=== PATIENT | male | born 1995 | race African-American/Black ===

== ENCOUNTER 2017-11-10 15:48 | Emergency (ER) | payer OTHER ==
[2017-11-10 16:19] VITALS: BP 107/76; PULSE 87; RESP 18; TEMP 98.3
[2017-11-10] MEDS ORDERED: IBUPROFEN 800 MG TAB PO STA (16:37)
--- NOTE | 2017-11-10 16:37 | ED ---
Back Pain HPI - General Chief Complaint: Back Pain/Injury Stated Complaint: back pain Time Seen by Provider: 11/10/17 16:23 Source: patient, RN notes reviewed Limitations: no limitations - History of Present Illness Initial Comments: This a 22-year-old male who denies past medical history who presents today for chief complaint of right-sided mid thoracic back pain. Patient states that yesterday he did not know the exact onset, but he began noticing pain in the right thoracic back that increased with rotation to the left. He states he probably slept on it wrong. He denies any fever, chills, night sweats, chest pain, shorts of breath, cough, hemoptysis, IV drug use or recent weight loss, flank pain, difficulty urinating, trauma to the chest or back, recent fall. Patient states that he figured that the pain would interfere with his work suicide presents emergency department today. Remainder ROS negative. VS within normal limits. - Related Data Previous Rx's Medication Instructions Recorded Ibuprofen [Motrin] 800 mg PO Q8H PRN 5 Days #15 tab 11/10/17 Allergies Allergy/AdvReac Type Severity Reaction Status Date / Time No Known Allergies Allergy Verified 11/10/17 16:19 Review of Systems ROS Statement: Those systems with pertinent positive or pertinent negative responses have been documented in the HPI. ROS Other: All systems not noted in ROS Statement are negative. Constitutional: Denies: fever, chills Eyes: Denies: vision change ENT: Denies: ear pain, throat pain Respiratory: Denies: cough, dyspnea, wheezes, hemoptysis, stridor Cardiovascular: Denies: chest pain, palpitations, orthopnea, edema, syncope Gastrointestinal: Denies: abdominal pain, nausea, vomiting Genitourinary: Denies: urgency, dysuria, frequency, hematuria Musculoskeletal: Reports: back pain, myalgia (rigth side of back). Denies: joint swelling, arthralgia Skin: Denies: rash Past Medical History Past Medical History: No Reported History History of Any Multi-Drug Resistant Organisms: None Reported Past Surgical History: No Surgical Hx Reported Past Psychological History: No Psychological Hx Reported Smoking Status: Current every day smoker Past Alcohol Use History: None Reported Past Drug Use History: None Reported General Exam - General Exam Comments Initial Comments: General: The patient is awake and alert, in no distress, and does not appear acutely ill. Eye: Pupils are equal, round and reactive to light, extra-ocular movements are intact. No nystagmus. There is normal conjunctiva bilaterally. No signs of icterus. Ears, nose, mouth and throat: There are moist mucous membranes and no oral lesions. Neck: The neck is supple, there is no tenderness or JVD. Cardiovascular: There is a regular rate and rhythm. No murmur, rub or gallop is appreciated. Respiratory: Lungs are clear to auscultation, respirations are non-labored, breath sounds are equal. No wheezes, stridor, rales, or rhonchi. Breath sounds appreciated in all lung [place]. Musculoskeletal: No overlying swelling, ecchymosis or rashes of the thoracic spine. Full ROM with forced flexion, hyperextension, lateral flexion and rotation at the lumbar spine and thoracic, patient admits to tenderness to left rotation. Tenderness to patient over the right sided thoracic spine. No midline tenderness to palpation of the spine from thoracic to lumbar. No CVA tenderness. Strength 5/5 of the upper extremities and lower extremities equally bilaterally. Sensation intact upper extremities and lower extremities equally bilaterally. DP and radial pulses equal bilaterally 2+. Neurological: A&O x 3. CN II-XII intact, There are no obvious motor or sensory deficits. Coordination appears grossly intact. Speech is normal. Skin: Skin is warm and dry and no rashes or lesions are noted. Psychiatric: Cooperative, appropriate mood & affect, normal judgment. Limitations: no limitations Course Vital Signs 11/10/17 16:16 Temperature 98.3 F Pulse Rate 87 Respiratory 18 Rate Blood Pressure 107/76 O2 Sat by Pulse 99 Oximetry Medical Decision Making - Medical Decision Making Pt appear very comfortable, leaning back in chair. Given pt hx and physical examination findings I feel pt has a thoracic strain. Hx and physical examination findings no consistent with a cardiopulmonary cause of thoracic pain. Neurovascular exam WNL. Pt was requesting work note, it was given to pt. Imaging was discussed with pt and was deferred at this time. Pt was instructed to rest, use ice/heat alternating and NSAIDs for back strain. Pt agreed with plan, pt denied questions. Pt discharged in stable condition after case discussed with Dr. Coleman who agrees with impression and plan. Disposition Clinical Impression: Strain of mid-back Disposition: HOME SELF-CARE Condition: Good Instructions: Thoracic Back Strain (ED) Additional Instructions: Please use medication as discussed. Please follow-up with family doctor in the next 2 days of symptoms have not improved. Please return to emergency room if the symptoms increase or worsen or for any other concerns, as discussed. Prescriptions: Ibuprofen [Motrin] 800 mg PO Q8H PRN 5 Days #15 tab PRN Reason: Pain Is patient prescribed a controlled substance at d/c from ED?: No Referrals: Michael Riggins MD [Primary Care Provider] - 1-2 days Time of Disposition: 16:36
== END 2017-11-10 17:08 | disposition home or self-care (01) ==
LOC: EC 15:48
DX: S29.012A Strain of muscle and tendon of back wall of thorax, initial encounter (principal); F17.200 Nicotine dependence, unspecified, uncomplicated; X50.9XXA Other and unspecified overexertion or strenuous movements or postures, initial encounter
CPT/HCPCS: 99283

== ENCOUNTER 2018-01-14 20:52 | Emergency (ER) | payer OTHER ==
[2018-01-14 20:59] VITALS: TEMP 97.6
--- NOTE | 2018-01-14 21:16 | ED ---
Abdominal Pain HPI - General Chief Complaint: Abdominal Pain Stated Complaint: Abd Pain Time Seen by Provider: 01/14/18 21:13 Source: patient Mode of arrival: ambulatory Limitations: no limitations - History of Present Illness Initial Comments: Danny is an obese 22-year-old male who presents the ED today for evaluation of 3 days of umbilical pain. Patient reports that he has tenderness around his umbilicus. He thought he felt a lump there but isn't certain. He states that he asked his mom to fill his bellybutton and she stated she could not feel anything. Patient describes the pain as a sharp stabbing and worse with palpation and certain movements. There is no relieving factors to the pain. Pain is not associated with any fevers, chills, nausea, vomiting, change in bowel or bladder habits. Patient does not know if he has a previous history of hernia in this area. Patient stop does require him to lift heavy objects frequently. MD Complaint: abdominal pain - Related Data Home Medications Medication Instructions Recorded Confirmed No Known Home Medications 01/14/18 01/14/18 Allergies Allergy/AdvReac Type Severity Reaction Status Date / Time No Known Allergies Allergy Verified 01/14/18 21:41 Review of Systems ROS Statement: Those systems with pertinent positive or pertinent negative responses have been documented in the HPI. ROS Other: All systems not noted in ROS Statement are negative. Past Medical History Past Medical History: No Reported History History of Any Multi-Drug Resistant Organisms: None Reported Past Surgical History: No Surgical Hx Reported Past Psychological History: No Psychological Hx Reported Smoking Status: Former smoker Past Alcohol Use History: None Reported Past Drug Use History: None Reported General Exam - General Exam Comments Initial Comments: Physical Exam GENERAL: Patient is well-developed and well-nourished. Patient is nontoxic and well- hydrated and is in no distress. HENT: Normocephalic, Atraumatic. EYES: PERRL, EOMI PULMONARY: Unlabored respirations. No audible rales rhonchi or wheezing was noted. CARDIOVASCULAR: There is a regular rate and rhythm without any murmurs gallops or rubs. ABDOMEN: Soft and nontender with normal bowel sounds. Firm and nonreducible lump palpable at the umbilicus, approximately 1-2 cm in diameter. This is suspicious for fat-containing hernia. No overlying erythema or skin changes SKIN: Skin is clear with no lesions or rashes and otherwise unremarkable. : Deferred NEUROLOGIC: Patient is alert and oriented x3. Moving all extremities spontaneously MUSCULOSKELETAL: Normal extremities with adequate strength and full range of motion. No lower extremity swelling or edema. No calf tenderness. PSYCHIATRIC: Normal psychiatric evaluation. Limitations: no limitations Limitations: no limitations Course Vital Signs 01/14/18 01/14/18 01/14/18 20:58 21:19 21:30 Temperature 97.6 F Pulse Rate 78 60 Respiratory 18 16 Rate Blood Pressure 112/75 136/78 O2 Sat by Pulse 99 99 98 Oximetry 01/14/18 01/14/18 01/14/18 22:00 22:10 22:20 Temperature Pulse Rate 62 Respiratory 16 Rate Blood Pressure 130/99 129/77 129/77 O2 Sat by Pulse 97 98 97 Oximetry 01/14/18 01/14/18 01/14/18 22:30 23:00 23:20 Temperature Pulse Rate 60 62 63 Respiratory 16 16 16 Rate Blood Pressure 129/77 94/68 113/76 O2 Sat by Pulse 98 97 99 Oximetry 01/14/18 23:30 Temperature Pulse Rate Respiratory Rate Blood Pressure 113/76 O2 Sat by Pulse 100 Oximetry Medical Decision Making - Medical Decision Making Patient was seen and evaluated, history is obtained from the patient, physical exam is concerning for an incarcerated umbilical hernia. I have a high suspicion this contains only fat as the patient is not having any associated GI disturbances and pain is minimal. Computed tomography scan was ordered CT scan with small non incarcerated hernia Patient was re-examined, sleeping comfortably, results discussed with patient and mother. Plan for discharge with outpatient follow-up with general surgeon to discuss elective repair of this hernia. Return parameters were discussed. A work note was provided to excuse the patient from the rest the week of work. All questions pertaining care were answered best my ability patient was discharged home in stable condition. Disposition Clinical Impression: Umbilical hernia Disposition: HOME SELF-CARE Condition: Good Instructions: Umbilical Hernia (ED) Is patient prescribed a controlled substance at d/c from ED?: No Referrals: None,Stated [REFERRING] - 1-2 days Cesilia Garnett MD [STAFF PHYSICIAN] - 1-2 days
[2018-01-14] MEDS ORDERED: KETOROLAC 30 MG/ML 1 ML VIAL IVP STA (21:59)
[2018-01-14 22:24] VITALS: RESP 16
--- NOTE | 2018-01-14 22:36 | CT ---
EXAMINATION TYPE: CT abdomen pelvis w con DATE OF EXAM: 01/14/2018 COMPARISON: None HISTORY: Pain, umbilical hernia. CT DLP: 1761.4 mGycm Automated exposure control for dose reduction was used. TECHNIQUE: Helical acquisition of images was performed from the lung bases through the pelvis. CONTRAST: Performed without Oral Contrast and with IV Contrast, patient injected with 100 mL of Isovue 300. FINDINGS: Lung bases are clear of infiltrate. There is no pleural effusion. There is no pericardial effusion. There are small hiatal hernia. Liver shows no focal defect. There is no evidence of pancreatic mass. Gallbladder appears normal. Spleen appears normal. There is no adrenal mass. Kidneys show satisfactory contrast opacification. There is no hydronephrosi s. There is no retroperitoneal adenopathy. I see no intestinal wall thickening. There are no dilated loops. Appendix appears normal. There is no mesenteric edema. There is small umbilical hernia that co ntains fat. There is a small loop of bowel that projects into the hernia 5 mm. Bladder distends nadir hly. There is no inguinal hernia. There is no free fluid in the pelvis. Lumbar spine is intact. I see no bony destructive process. IMPRESSION: SMALL UMBILICAL HERNIA CONTAINS A LOOP OF SMALL BOWEL WITHOUT INCARCERATION. NORMAL APPENDIX. NO EVID ENCE OF A BOWEL OBSTRUCTION.
[2018-01-14 23:36] VITALS: BP 113/76; PULSE 63
== END 2018-01-14 23:39 | disposition home or self-care (01) ==
LOC: EC 20:52
DX: K42.9 Umbilical hernia without obstruction or gangrene (principal); Z87.891 Personal history of nicotine dependence
CPT/HCPCS: 74177; 99284; 96374; J1885; Q9967

== ENCOUNTER 2020-07-20 14:19 | Emergency (ER) | payer OTHER ==
[2020-07-20 14:42] VITALS: RESP 18
--- NOTE | 2020-07-20 15:58 | ED ---
Recheck HPI - General Chief Complaint: Recheck/Abnormal Lab/Rx Stated Complaint: wants COVID Test Time Seen by Provider: 07/20/20 14:57 Source: patient Mode of arrival: ambulatory Limitations: no limitations - History of Present Illness Initial Comments: She is a 24-year-old male presenting to the emergency department requesting a Covid test. Patient states he started developing cold-like symptoms yesterday and wants to make sure it's not Covid. He is complaining of some mild sinus congestion, mild cough, chills. No fevers, no chest pain, nausea as of breath. No abdominal pain or nausea or vomiting, no diarrhea. Eating and drinking as normal. He does admit to Covid contacts. He has no further complaints. - Related Data Home Medications Medication Instructions Recorded Confirmed No Known Home Medications 01/14/18 01/14/18 Allergies Allergy/AdvReac Type Severity Reaction Status Date / Time No Known Allergies Allergy Verified 07/20/20 14:42 Review of Systems ROS Statement: Those systems with pertinent positive or pertinent negative responses have been documented in the HPI. ROS Other: All systems not noted in ROS Statement are negative. Past Medical History Past Medical History: No Reported History History of Any Multi-Drug Resistant Organisms: None Reported Past Surgical History: No Surgical Hx Reported Past Psychological History: No Psychological Hx Reported Smoking Status: Current every day smoker Past Alcohol Use History: Occasional Past Drug Use History: Marijuana General Exam - General Exam Comments Initial Comments: GENERAL: Patient is well-developed and well-nourished. Patient is nontoxic and in no acute distress. HEAD: Atraumatic, normocephalic. EYES: Pupils equal round and reactive to light, extraocular movements intact, sclera anicteric, conjunctiva are normal. Eyelids were unremarkable. ENT: TMs normal, nares patent, oropharynx clear without exudates. Moist mucous membranes. NECK: Normal range of motion, supple without lymphadenopathy or JVD. LUNGS: Unlabored respirations. Breath sounds clear to auscultation bilaterally and equal. No wheezes rales or rhonchi. HEART: Regular rate and rhythm without murmurs, rubs or gallops. ABDOMEN: Soft, nontender, normoactive bowel sounds. No guarding, no rebound. No masses appreciated. : Deferred MUSCULOSKELETAL: Normal extremities with adequate strength and normal range of motion, no pitting or edema. No clubbing or cyanosis. NEUROLOGICAL: Patient is alert and oriented x 3. Motor and sensory are also intact. Cranial nerves II through XII grossly intact. Symmetrical smile. Normal speech, normal gait. PSYCH: Normal mood, normal affect. SKIN: Warm, Dry, normal turgor, no rashes or lesions noted. Limitations: no limitations Course Vital Signs 07/20/20 14:38 Temperature 98.1 F Pulse Rate 72 Respiratory 18 Rate Blood Pressure 108/75 O2 Sat by Pulse 100 Oximetry Medical Decision Making - Medical Decision Making Patient is a 24-year-old male here requesting a Covid test for mild symptoms that started yesterday. He does have positive Covid exposure and wants to make sure he is not positive. His vitals are stable, exam is unremarkable. His rapid test is negative today. I discussed these findings with him here. He can follow up with his PCP. - Lab Data Lab Results 07/20/20 Range/Units 15:27 Coronavirus (PCR) Not Detected (Not Detectd) Disposition Clinical Impression: Viral illness Disposition: HOME SELF-CARE Condition: Stable Additional Instructions: Please return to the Emergency Department if symptoms worsen or any other concerns. Rapid Covid test today is negative. Is patient prescribed a controlled substance at d/c from ED?: No Referrals: Vy Mckay MD [Primary Care Provider] - 1-2 days Time of Disposition: 15:58
[2020-07-20 16:10] VITALS: BP 133/85; PULSE 78; TEMP 98.7
== END 2020-07-20 16:09 | disposition home or self-care (01) ==
LOC: EC 14:19
DX: B34.9 Viral infection, unspecified (principal); F17.200 Nicotine dependence, unspecified, uncomplicated; Z20.822 Contact with and (suspected) exposure to COVID-19; F12.90 Cannabis use, unspecified, uncomplicated
CPT/HCPCS: 87635; 99283

== ENCOUNTER 2020-10-08 09:40 | Emergency (ER) | payer OTHER ==
[2020-10-08 09:44] VITALS: BP 132/87; PULSE 65; RESP 16; TEMP 98
--- NOTE | 2020-10-08 10:24 | ED ---
General Adult HPI - General Chief complaint: Neck Pain/Injury Stated complaint: lump on neck Time Seen by Provider: 10/08/20 09:52 Source: patient, RN notes reviewed Mode of arrival: ambulatory Limitations: no limitations - History of Present Illness Initial comments: Patient is a 25-year-old male that presents to emergency department complaining of a left submandibular nodule. He notes that it's been present for several days it is very mildly tender to the touch and palpation. He noted that he has not had any cough congestion ALLERGIES or other upper respiratory tract issues. He notes that he was on google looking up his symptoms. He came to the emergency room to get evaluated as he was fearful for cancer. He denied any other issues or complaints. He was a well-appearing well-hydrated 25-year-old male. He denied any chest pain shortness of breath headache nausea vomiting diarrhea constipation fever fatigue chills. - Related Data Home Medications Medication Instructions Recorded Confirmed No Known Home Medications 01/14/18 01/14/18 Allergies Allergy/AdvReac Type Severity Reaction Status Date / Time No Known Allergies Allergy Verified 10/08/20 09:41 Review of Systems ROS Statement: Those systems with pertinent positive or pertinent negative responses have been documented in the HPI. ROS Other: All systems not noted in ROS Statement are negative. Past Medical History Past Medical History: No Reported History History of Any Multi-Drug Resistant Organisms: None Reported Past Surgical History: No Surgical Hx Reported Past Psychological History: No Psychological Hx Reported Smoking Status: Current every day smoker Past Alcohol Use History: Occasional Past Drug Use History: Marijuana General Exam Limitations: no limitations General appearance: alert, in no apparent distress, obese Head exam: Present: atraumatic, normocephalic, normal inspection Eye exam: Present: normal appearance, PERRL, EOMI. Absent: scleral icterus, conjunctival injection, periorbital swelling Neck exam: Present: normal inspection, lymphadenopathy (Single enlarged lymph node left submandibular region that is approximately 4 mm, mild tenderness to palpation. Mobile not fixated.). Absent: tenderness Respiratory exam: Present: normal lung sounds bilaterally. Absent: respiratory distress, wheezes, rales, rhonchi, stridor Cardiovascular Exam: Present: regular rate, normal rhythm, normal heart sounds. Absent: systolic murmur, diastolic murmur, rubs, gallop, clicks Extremities exam: Present: normal inspection, full ROM, normal capillary refill. Absent: tenderness, pedal edema, joint swelling, calf tenderness Neurological exam: Present: alert, oriented X3 Psychiatric exam: Present: normal affect, normal mood Skin exam: Present: warm, dry, intact, normal color. Absent: rash Course Vital Signs 10/08/20 09:41 Temperature 98.0 F Pulse Rate 65 Respiratory 16 Rate Blood Pressure 132/87 Medical Decision Making - Medical Decision Making Patient is a 25-year-old male complaining of a left submandibular lymph node. Given clinical exam patient has a singular swollen lymph node with no other issues or complaints. Case discussed with Dr. Fox, patient discharge home with follow-up to primary care and conservative management with Tylenol and Motrin. Disposition Clinical Impression: Lymphadenopathy Disposition: HOME SELF-CARE Condition: Stable Instructions (If sedation given, give patient instructions): Lymphadenopathy (ED) Additional Instructions: Please return to the Emergency Department if symptoms worsen or any other concerns. Take Tylenol and Motrin as needed for pain control and any fevers. Follow-up with primary care in the next several days. Is patient prescribed a controlled substance at d/c from ED?: No Referrals: Vy Mckay MD [Primary Care Provider] - 1-2 days Time of Disposition: 10:24
== END 2020-10-08 10:40 | disposition home or self-care (01) ==
LOC: EC 09:40
DX: R59.0 Localized enlarged lymph nodes (principal); F17.200 Nicotine dependence, unspecified, uncomplicated
CPT/HCPCS: 99283